=== PATIENT | male | born 1970 | race Caucasian/White ===

== ENCOUNTER 2020-07-16 10:47 | Emergency (ER) | payer OTHER ==
[2020-07-16 12:59] LABS: BILIRUBIN NEGATIVE (NEGATIVE); BLOOD NEGATIVE Ery/uL (NEGATIVE); CLARITY CLEAR (CLEAR); COLOR YELLOW (YELLOW); GLUCOSE (U) NORMAL (NORMAL); LEUKOCYTES NEGATIVE Leu/uL (NEGATIVE); NITRITE NEGATIVE (NEGATIVE); PROTEIN NEGATIVE (NEGATIVE); UROBILINOGEN 0.2 mg/dL (0.2-1.0); pH 6.5 (5.0-9.0)
[2020-07-16] MEDS ORDERED: NORCO 5-325 TA1 EACH PO (14:02)
[2020-07-16] MEDS ORDERED: ROBAXIN750 MG PO (14:02)
== END 2020-07-16 14:30 | disposition home or self-care (01) ==
LOC: FER 10:47
PROVIDERS: Emergency Medicine
DX: S20.212A Contusion of left front wall of thorax, initial encounter (principal); K21.9 Gastro-esophageal reflux disease without esophagitis; W10.9XXA Fall (on) (from) unspecified stairs and steps, initial encounter; Z79.899 Other long term (current) drug therapy
CPT/HCPCS: 71101; 81003; J1170

== ENCOUNTER 2022-01-09 22:26 | Emergency (ER) | payer OTHER ==
[~2022-01-09 22:26] MED LIST: NORCO 5-325 TA1 EACH PO; ROBAXIN750 MG PO
[2022-01-10] MEDS ORDERED: NORCO 5-325 TA1 EACH PO (00:24)
== END 2022-01-10 00:24 | disposition home or self-care (01) ==
LOC: FER 22:26
DX: S62.315A Displaced fracture of base of fourth metacarpal bone, left hand, initial encounter for closed fracture (principal); Z28.310 Unvaccinated for COVID-19; Z88.1 Allergy status to other antibiotic agents; W19.XXXA Unspecified fall, initial encounter; Y92.009 Unspecified place in unspecified non-institutional (private) residence as the place of occurrence of the external cause
CPT/HCPCS: 73130